=== PATIENT | male | born 1990 | race Caucasian/White ===

== ENCOUNTER 2019-08-15 00:48 | Emergency (ER) | payer OTHER ==
[~2019-08-15] VITALS: Ht 182.9 cm; Wt 100.0 kg
[2019-08-15 00:49] VITALS: BP 168/92
[2019-08-15] MEDS ORDERED: SUBO8MIS (00:58)
[2019-08-15] MEDS ORDERED: FLUORESCEIN OPHTH 1 MG STRIP OU ONE (01:45)
[2019-08-15] MEDS ORDERED: TETRACAINE 0.5% OPHTH SOLN 4ML OU ONE (01:45)
[2019-08-15] MEDS ORDERED: ACET500T15 PO (02:11)
[2019-08-15] MEDS ORDERED: ERYT1OIN26 OP (02:11)
[2019-08-15] MEDS ORDERED: IBUP80TA PO (02:11)
[2019-08-15] MEDS ORDERED: IBUPROFEN 600 MG TAB PO ONE (02:15)
[2019-08-15] MEDS ORDERED: ERYTHROMYCIN OPHTH OINT OU ONE (02:15)
[2019-08-15] MEDS ORDERED: ACETAMINOPHEN 500 MG TAB PO ONE (02:15)
== END 2019-08-15 02:26 | disposition home or self-care (01) ==
LOC: M ED 00:48
DX: H16.133 Photokeratitis, bilateral (principal); I10 Essential (primary) hypertension; Z79.891 Long term (current) use of opiate analgesic; Z88.0 Allergy status to penicillin; F17.210 Nicotine dependence, cigarettes, uncomplicated